=== PATIENT | female | born 1980 | race Two or more races ===

== ENCOUNTER → 2022-01-09 | Outpatient (CLI) | payer MEDICAID | END | disposition home or self-care (01) | LOC: LAB 11:10 | PROVIDERS: ATTEND Internal Medicine | DX: R07.9 Chest pain, unspecified (principal) | CPT/HCPCS: 36415; 85379 ==

== ENCOUNTER 2022-01-12 14:19 | Emergency (ER) | payer MEDICAID ==
[~2022-01-12] VITALS: Ht 157.5 cm; Wt 122.9 kg
[2022-01-12 15:33] LABS: Hemoglobin 13.5 g/dL (12.2-16.2); Lymphocytes # (auto) 1.9 10 ^3/uL (0.4-5.4); Monocytes # (auto) 0.7 10 ^3/uL (0-1.3); Nucleated Red Blood Cells % 0.1 %; White Blood Cell 9.4 10^3/uL (4.4-10.8)
[2022-01-12 15:36] LABS: Basophils # (auto) 0.1 10 ^3/uL (0-0.2); Basophils % (auto) 0.5 % (0.0-2.0); Eosinophils # (auto) 0 10 ^3/uL (0-0.8); Eosinophils % (auto) 0.5 % (0.0-7.0); Hematocrit 41.6 % (36.0-46.0); Lymphocytes % (auto) 20.5 % (10.0-50.0); Mean Corpuscular Hemoglobin 25.4 pg (28.0-32.0); Mean Corpuscular Hgb Conc. 32.5 g/dL (32.0-36.0); Mean Corpuscular Volume 78.2 fL (80.0-100.0); Monocytes % (auto) 7.9 % (0.0-12.0); Neutrophils # (auto) 6.6 10 ^3/uL (1.6-8.6); Neutrophils % (auto) 70.6 % (37.0-80.0); Red Blood Cells 5.32 10^6/uL (4.0-5.20); Red Cell Distribution Width 13.4 % (11.8-14.3)
[2022-01-12 15:52] LABS: Albumin 3.2 g/dL (3.4-5.0); Potassium 3.8 mmol/L (3.5-5.1)
[2022-01-12 15:55] LABS: BUN/Creatinine Ratio 30.6; Bilirubin, Total 0.4 mg/dL (0.2-1.0); Total Protein 7.3 g/dL (6.4-8.2)
[2022-01-12 17:01] VITALS: BP 142/83
[2022-01-12 17:04] LABS: Beta HCG, Quantitative < 1 mlU/mL (1-3); Thyroid Stimulating Hormone < 0.01 uIU/mL (0.358-3.74)
== END 2022-01-12 18:28 | disposition left against medical advice (07) ==
LOC: ER 14:19
DX: R60.0 Localized edema (principal); R79.1 Abnormal coagulation profile; Z88.6 Allergy status to analgesic agent
CPT/HCPCS: 36415; 80053; 81025; 84443; 84702; 85025; 85379; 93005; 93970